=== PATIENT | female | born 1960 | race Caucasian/White ===

== ENCOUNTER 2023-03-04 09:23 | Outpatient (CLI) | payer OTHER, SELFPAY ==
--- NOTE | 2023-03-04 | EST_ITS ---
Patient Info Name: Phyllis Feliciano Age: 62 years : 1960 Gender: Female Ht: 64 in Wt: 135 lbs BSA: 1.67 m2 HR: 62 bpm BP: 144 / 74 mmHg Heart Rhythm: Sinus Rhythm Technical Quality: Good Exam Date: 03/04/2023 10:24 AM Exam Location: [facility] Patient Status: Outpatient Admit Date: 03/04/2023 Staff Ordering Physician: Arpan, Nenita Paulino MD Career Development Associate: Fide Verma RDCS Attending Provider: Arpan, Nenita Paulino MD Referring Physician: Arpan SANDOVAL; Exercise Technologist: Fide Verma RDCS Nurse: Helena Tolbert APN Exam Type: CA stress echo Study Info Indications R07.89 - Other chest pain R42 - Dizziness and giddiness Two-dimensional, color flow imaging, and Doppler interrogation is performed during the stress echocardiogram. Summary 1. Abnormal stress test for stress-induced wall motion abnormalities involving the anteroseptum, mid inferoseptum, apical septum, and apex. 2. No ECG evidence of ischemia. 3. No exercise-induced chest pain. 4. The supervising and interpreting physician is Dr. Robi Thomas. Recommendations * Further cardiac workup for abnormal stress test is recommended. Stress Echo Findings Left Ventricle Left ventricular systolic function post exercise is estimated at 60-65%. Stress-induced wall motion abnormalities are present. Mid and basilar anteroseptal, apical septal, mid inferoseptal, and apical hypokinesis post exercise. Left Ventricle Left ventricular chamber size, wall thickness, systolic and diastolic function are normal with no regional wall motion abnormalities with an estimated ejection fraction of 60-65%. Protocol: [facility] Stress ECG Details Stage: REST Duration (min): 5 min : 7 sec Speed (mph): 0.0 Grade (%): 0 HR (bpm): 60 SBP (mmHg): 144 DBP (mmHg): 74 METS: --- Stage: REST Duration (min): 17 min : 26 sec Speed (mph): 0.0 Grade (%): 0 HR (bpm): 76 SBP (mmHg): 144 DBP (mmHg): 74 METS: --- Stage: STAGE 1 Duration (min): 1 min : 0 sec Speed (mph): 1.7 Grade (%): 10 HR (bpm): 95 SBP (mmHg): 144 DBP (mmHg): 74 METS: --- Stage: STAGE 1 Duration (min): 2 min : 0 sec Speed (mph): 1.7 Grade (%): 10 HR (bpm): 108 SBP (mmHg): 144 DBP (mmHg): 74 METS: --- Stage: STAGE 1 Duration (min): 3 min : 0 sec Speed (mph): 1.7 Grade (%): 10 HR (bpm): 117 SBP (mmHg): 169 DBP (mmHg): 61 METS: --- Stage: STAGE 2 Duration (min): 1 min : 0 sec Speed (mph): 2.5 Grade (%): 12 HR (bpm): 137 SBP (mmHg): 169 DBP (mmHg): 61 METS: --- Stage: STAGE 2 Duration (min): 2 min : 0 sec Speed (mph): 2.5 Grade (%): 12 HR (bpm): 148 SBP (mmHg): 182 DBP (mmHg): 69 METS: --- Stage: STAGE 2 Duration (min): 3 min : 0 sec Speed (mph): 2.5 Grade (%): 12 HR (bpm): 154 SBP (mmHg): 182 DBP (mmHg): 69 METS: --- Stage: STAGE 3 Duration (min): 1 min : 0 sec Speed (mph): 0.0 Grade (%): 0 HR (bpm): 124 SBP (mmHg): 182 DBP (mmHg): 67 METS: --- Stage: STAGE 3 Duration (min): 2 min : 0 sec
== END 2023-03-04 09:24 | disposition home or self-care (01) ==
PROVIDERS: Visit Provider Family Medicine
DX: R07.89 Other chest pain (principal); R42 Dizziness and giddiness
CPT/HCPCS: 93351